=== PATIENT | male | born 1955 | race Two or more races ===

== ENCOUNTER 2017-08-26 16:31 | Emergency (ER) | payer OTHER ==
[~2017-08-26] VITALS: Ht 185.4 cm; Wt 77.1 kg
[~2017-08-26 16:31] MED LIST: AQUASOL E15 IU/0.3 PO; CATAFLAM50 MG PO; COZAAR50 MG; COZAAR50 MG PO; DOLOGESIC 500-1 EACH PO; ELOCON45 G1 TP; FLEXERIL10 MG PO; FLUCONAZOLE100 MG PO; GILTUSS TR TAB1 EACH PO; IMODIUM A-D2 MG PO; PEPCID40 MG PO; ZOFRAN4 MG PO; ZYNCOF 20-400120 ML PO; ZYRTEC10 MG PO
== END 2017-08-26 17:44 | disposition home or self-care (01) ==
LOC: ER 16:31
DX: S61.236A Puncture wound without foreign body of right little finger without damage to nail, initial encounter (principal); W46.0XXA Contact with hypodermic needle, initial encounter; Y93.89 Activity, other specified; Y92.69 Other specified industrial and construction area as the place of occurrence of the external cause; Y99.8 Other external cause status

== ENCOUNTER 2017-10-11 15:20 | Outpatient (CLI) | payer OTHER | END 2017-10-11 15:24 | disposition home or self-care (01) | LOC: RAD 15:20 | DX: M25.552 Pain in left hip (principal) ==

== ENCOUNTER → 2018-02-18 | Emergency (ER) | payer OTHER ==
[~2018-02-18] VITALS: Ht 182.9 cm; Wt 77.1 kg
== END | disposition home or self-care (01) ==
LOC: ER 12:00
DX: H57.89 Other specified disorders of eye and adnexa (principal)

== ENCOUNTER 2018-03-22 15:07 | Outpatient (CLI) | payer OTHER | END 2018-03-22 15:20 | disposition home or self-care (01) | LOC: LAB 15:07 | DX: Z11.3 Encounter for screening for infections with a predominantly sexual mode of transmission (principal) ==

== ENCOUNTER 2018-05-25 06:56 | Outpatient (CLI) | payer OTHER | END 2018-05-25 07:00 | disposition home or self-care (01) | LOC: LAB 06:56 | DX: E78.49 Other hyperlipidemia (principal); Z00.00 Encounter for general adult medical examination without abnormal findings; R42 Dizziness and giddiness ==

== ENCOUNTER 2018-07-21 14:30 | Emergency (ER) | payer OTHER ==
[~2018-07-21] VITALS: Ht 188 cm; Wt 77.1 kg
[2018-07-21] MEDS ORDERED: ATACAND16 MG (14:50)
== END 2018-07-21 19:17 | disposition home or self-care (01) ==
LOC: ER 14:30
DX: R10.84 Generalized abdominal pain (principal)

== ENCOUNTER 2019-01-11 21:28 | Emergency (ER) | payer OTHER ==
[~2019-01-11] VITALS: Ht 185.4 cm; Wt 81.6 kg
[~2019-01-11 21:28] MED LIST changes: +ATACAND16 MG
== END 2019-01-11 22:38 | disposition home or self-care (01) ==
LOC: ER 21:28
DX: M54.5 Low back pain (principal)

== ENCOUNTER 2019-01-12 15:01 | Outpatient (CLI) | payer OTHER | END 2019-01-12 15:10 | disposition home or self-care (01) | LOC: LAB 15:01 | DX: M54.5 Low back pain (principal); I10 Essential (primary) hypertension; Z00.00 Encounter for general adult medical examination without abnormal findings; Z12.11 Encounter for screening for malignant neoplasm of colon; Z13.6 Encounter for screening for cardiovascular disorders; Z12.5 Encounter for screening for malignant neoplasm of prostate; M54.6 Pain in thoracic spine ==

== ENCOUNTER 2019-01-14 15:14 | Outpatient (CLI) | payer OTHER | END 2019-01-14 17:26 | disposition home or self-care (01) | LOC: LAB 15:14 | DX: M54.5 Low back pain (principal); M54.6 Pain in thoracic spine; Z12.11 Encounter for screening for malignant neoplasm of colon; Z00.00 Encounter for general adult medical examination without abnormal findings; I10 Essential (primary) hypertension; Z13.6 Encounter for screening for cardiovascular disorders; Z12.5 Encounter for screening for malignant neoplasm of prostate ==

== ENCOUNTER 2019-04-21 17:00 | Outpatient (CLI) | payer OTHER | END 2019-04-21 17:23 | disposition home or self-care (01) | LOC: LAB 17:00 | DX: R05 Cough (principal); J11.1 Influenza due to unidentified influenza virus with other respiratory manifestations ==

== ENCOUNTER 2019-09-28 18:41 | Emergency (ER) | payer OTHER ==
[~2019-09-28] VITALS: Ht 188 cm; Wt 77.1 kg
[2019-09-28] MEDS ORDERED: COZAAR50 MG PO (18:56)
== END 2019-09-28 21:51 | disposition home or self-care (01) ==
LOC: ER 18:41
DX: S61.021A Laceration with foreign body of right thumb without damage to nail, initial encounter (principal); W45.8XXA Other foreign body or object entering through skin, initial encounter; Y93.89 Activity, other specified; Y92.89 Other specified places as the place of occurrence of the external cause; Y99.8 Other external cause status

== ENCOUNTER 2019-11-16 10:00 | Outpatient (CLI) | payer OTHER | END 2019-11-16 15:46 | disposition home or self-care (01) | LOC: PPH VACUNA 10:00 | DX: Z23 Encounter for immunization (principal) ==

== ENCOUNTER 2020-02-06 14:06 | Outpatient (CLI) | payer OTHER | END 2020-02-06 15:00 | disposition home or self-care (01) | LOC: PPH VACUNA 14:06 | DX: Z23 Encounter for immunization (principal) ==

== ENCOUNTER 2020-02-27 13:10 | Emergency (ER) | payer OTHER ==
[~2020-02-27] VITALS: Ht 185.4 cm; Wt 77.1 kg
== END 2020-02-27 14:43 | disposition home or self-care (01) ==
LOC: ER 13:10
DX: H92.01 Otalgia, right ear (principal); H53.142 Visual discomfort, left eye

== ENCOUNTER 2020-05-01 08:32 | Emergency (ER) | payer OTHER ==
[~2020-05-01] VITALS: Ht 182.9 cm; Wt 81.6 kg
== END 2020-05-01 10:02 | disposition home or self-care (01) ==
LOC: ER 08:32
DX: M25.521 Pain in right elbow (principal)

== ENCOUNTER 2020-11-28 16:10 | Outpatient (CLI) | payer OTHER | END 2020-11-28 16:15 | disposition home or self-care (01) | LOC: PPH VACUNA 16:10 | PROVIDERS: ATTEND Emergency Medicine Pediatric Emergency Medicine | DX: Z23 Encounter for immunization (principal) ==

== ENCOUNTER 2020-12-26 13:05 | Outpatient (CLI) | payer OTHER | END 2020-12-26 13:30 | disposition home or self-care (01) | LOC: PPH VACUNA 13:05 | PROVIDERS: ATTEND Emergency Medicine Pediatric Emergency Medicine | DX: Z23 Encounter for immunization (principal) ==

== ENCOUNTER 2021-06-19 10:29 | Emergency (ER) | payer OTHER ==
[~2021-06-19] VITALS: Ht 185.4 cm; Wt 81.6 kg
== END 2021-06-19 13:35 | disposition home or self-care (01) ==
LOC: ER 10:29
DX: B34.9 Viral infection, unspecified (principal); I10 Essential (primary) hypertension; Z20.822 Contact with and (suspected) exposure to COVID-19

== ENCOUNTER 2021-06-23 10:26 | Outpatient (CLI) | payer OTHER | END 2021-06-23 10:35 | disposition home or self-care (01) | LOC: LAB 10:26 | PROVIDERS: ATTEND General Practice | DX: Z20.822 Contact with and (suspected) exposure to COVID-19 (principal); R05.9 Cough, unspecified; R50.9 Fever, unspecified ==

== ENCOUNTER 2021-07-31 15:01 | Outpatient (CLI) | payer OTHER | END 2021-07-31 15:11 | disposition home or self-care (01) | LOC: PPH VACUNA 15:01 | PROVIDERS: ATTEND Emergency Medicine Pediatric Emergency Medicine | DX: Z23 Encounter for immunization (principal) ==

== ENCOUNTER 2021-12-16 15:30 | Outpatient (CLI) | payer OTHER | END 2021-12-16 15:35 | disposition home or self-care (01) | LOC: PPH VACUNA 15:30 | PROVIDERS: ATTEND Emergency Medicine Pediatric Emergency Medicine | DX: Z23 Encounter for immunization (principal) ==

== ENCOUNTER 2022-04-19 18:28 | Emergency (ER) | payer OTHER ==
[~2022-04-19] VITALS: Ht 188 cm; Wt 77.1 kg
== END 2022-04-19 21:14 | disposition home or self-care (01) ==
LOC: ER 18:28
DX: J06.9 Acute upper respiratory infection, unspecified (principal); Z20.822 Contact with and (suspected) exposure to COVID-19

== ENCOUNTER → 2022-05-13 06:06 | Outpatient (CLI) | payer OTHER | END | disposition home or self-care (01) | LOC: LAB 06:06 | PROVIDERS: ATTEND General Practice | DX: Z00.00 Encounter for general adult medical examination without abnormal findings (principal); E78.5 Hyperlipidemia, unspecified; E55.9 Vitamin D deficiency, unspecified; I10 Essential (primary) hypertension; R10.9 Unspecified abdominal pain; N39.0 Urinary tract infection, site not specified; Z12.5 Encounter for screening for malignant neoplasm of prostate; R42 Dizziness and giddiness ==

== ENCOUNTER 2022-07-07 16:27 | Emergency (ER) | payer OTHER ==
[~2022-07-07] VITALS: Ht 182.9 cm; Wt 81.6 kg
== END 2022-07-07 20:41 | disposition home or self-care (01) ==
LOC: ER 16:27
DX: M72.2 Plantar fascial fibromatosis (principal)

== ENCOUNTER 2023-03-10 13:01 | Emergency (ER) | payer OTHER ==
[~2023-03-10] VITALS: Ht 177.8 cm; Wt 71.7 kg
[2023-03-10 14:41] LABS: HEMATOCRIT 38.8 % (39.0-48.0); MEAN CORPUSCULAR HEMOGLOBIN 27.7 pg (27.00-32.0); MEAN CORPUSCULAR HGB CONC 33.4 g/dl (32.0-36.0); PLATELET COUNT 288 K/uL (150-450); RED BLOOD COUNT 4.67 M/uL (4.00-6.00); RED CELL DISTRIBUTION WIDTH 13.1 % (11.5-14.5)
[2023-03-10] MEDS ORDERED: ZITHROMAX500 MG PO (15:24)
[2023-03-10] MEDS ORDERED: TUSNEL LIQUID178 ML PO (15:24)
== END 2023-03-10 16:03 | disposition home or self-care (01) ==
LOC: ER 13:02
PROVIDERS: General Practice
DX: J06.9 Acute upper respiratory infection, unspecified (principal); Z20.822 Contact with and (suspected) exposure to COVID-19

== ENCOUNTER 2023-08-19 13:04 | Outpatient (CLI) | payer OTHER ==
[~2023-08-19 13:04] MED LIST changes: +TUSNEL LIQUID178 ML PO; +ZITHROMAX500 MG PO
[2023-08-19 13:49] LABS: HEMATOCRIT 41.1 % (39.0-48.0); HEMOGLOBIN 13.7 g/dL (13-16.00); MEAN CELL VOLUME 82.7 fL (80.0-100.00); MEAN CORPUSCULAR HEMOGLOBIN 27.6 pg (27.00-32.0); MEAN CORPUSCULAR HGB CONC 33.3 g/dl (32.0-36.0); PLATELET COUNT 259 K/uL (150-450); RED BLOOD COUNT 4.97 M/uL (4.00-6.00); RED CELL DISTRIBUTION WIDTH 13.3 % (11.5-14.5)
[2023-08-19 13:51] LABS: PH,URINE 5.5 (5.0-8.0); URINE APPEARANCE Clear; URINE BILIRRUBIN Negative (NEGATIVE); URINE BLOOD Negative; URINE COLOR Yellow; URINE GLUCOSE Negative (NEGATIVE); URINE LEUKOCYTE Negative; URINE NITRATE Negative; URINE PROTEIN 30 (NEGATIVE)
[2023-08-19 13:54] LABS: URINE BACTERIA 8.8 uL (0.0-1933); URINE EPITHELIAL CELLS 3.2 uL (0.0-38.8); URINE WBC 2.6 uL (0.0-23.2)
[2023-08-19 13:56] LABS: URINE RBC 1.3 uL (0.0-20.8)
[2023-08-19 14:47] LABS: T3 TOTAL 1.27 ng/ml (0.846-2.02); VITAMIN D3 25 HYDROXY 37.08 ng/ml (30-120)
[2023-08-19 14:49] LABS: ALBUMIN 4.1 gm/dL (3.4-5.0); BILIRUBIN TOTAL 0.69 mg/dL (0.3-1.2); BILIRUBIN,CONJUGATED 0.21 mg/dL (0.0-0.2); BILIRUBIN,UNCONJUGATED 0.48 mg/dL (0.0-0.6); CALCIUM 9.6 mg/dL (8.5-10.1); CHOL HDL RATIO 2.5 (0-5.0); GFR 74.09; GLOBULINA 2.8 G/DL (2.4-3.5); POTASSIUM 4.57 mEq/L (3.5-5.1); PROSTATIC SPECIFIC ANTIGEN 0.541 NG/ML (0.010-4.00); T4 TOTAL 10.52 UG/DL (4.5-12.1); TOTAL PROTEIN 6.9 gm/dL (6.4-8.2); TSH 1.17 uIU/mL (0.358-3.74)
== END 2023-08-19 13:09 | disposition home or self-care (01) ==
LOC: LAB 13:04
PROVIDERS: ATTEND General Practice
DX: E78.5 Hyperlipidemia, unspecified (principal); E55.9 Vitamin D deficiency, unspecified; N39.0 Urinary tract infection, site not specified; R42 Dizziness and giddiness; Z00.00 Encounter for general adult medical examination without abnormal findings

== ENCOUNTER 2023-11-17 14:55 | Outpatient (CLI) | payer OTHER | END 2023-11-17 14:56 | disposition home or self-care (01) | LOC: LAB 14:55 | PROVIDERS: ATTEND Preventive Medicine Occupational Medicine | DX: B19.10 Unspecified viral hepatitis B without hepatic coma (principal) ==

== ENCOUNTER 2024-01-04 15:30 | Outpatient (CLI) | payer OTHER | END 2024-01-04 15:40 | disposition home or self-care (01) | LOC: PPH VACUNA 15:30 | PROVIDERS: ATTEND Emergency Medicine Pediatric Emergency Medicine | DX: Z23 Encounter for immunization (principal) ==

== ENCOUNTER 2024-05-11 10:39 | Emergency (ER) | payer OTHER ==
[~2024-05-11] VITALS: Ht 185.4 cm; Wt 77.1 kg
[2024-05-11 10:44] VITALS: BP 136/76; O2SAT 96
== END 2024-05-11 11:14 | disposition home or self-care (01) ==
LOC: ER 10:42
DX: L84 Corns and callosities (principal)

== ENCOUNTER 2025-01-11 15:00 | Outpatient (CLI) | payer OTHER ==
[2025-01-11 15:41] LABS: URINE APPEARANCE Clear; URINE BILIRRUBIN Negative (NEGATIVE); URINE BLOOD Negative; URINE COLOR Yellow; URINE GLUCOSE Negative (NEGATIVE); URINE KETONE Negative (NEGATIVE); URINE LEUKOCYTE Negative; URINE NITRATE Negative; URINE PROTEIN 30 (NEGATIVE); URINE UROBILINOGEN 1.0 E.U./dl
[2025-01-11 15:41] LABS: BASO % 0.8 % (0.1-1.2); EOS # 0.14 (0.04-0.54); EOS % 2.9 % (0.7-7.0); LYMPH # 1.36 (1.18-3.74); LYMPH % 28.0 % (19.3-53.1); MEAN PLATELET VOLUME 9.70 fl (9.4-12.4); MONO # 0.34 (0.24-0.82); MONO % 7.0 % (4.7-12.5); NEUT # 2.96 (1.56-6.13); NEUT % 61.1 % (34.0-71.1); RED CELL DISTRIBUTION WIDTH 12.3 % (11.6-14.4)
[2025-01-11 15:45] LABS: URINE BACTERIA 5.9 uL (0.0-1933); URINE EPITHELIAL CELLS 3.6 uL (0.0-38.8); URINE WBC 2.1 uL (0.0-23.2)
[2025-01-11 15:49] LABS: URINE CAST 0.00 uL (0.0-1.40); URINE RBC 1.0 uL (0.0-20.8)
[2025-01-11 16:30] LABS: ALT/SGPT 20.0 U/L (12-78); AST/SGOT 8.0 U/L (15-37); BILIRUBIN TOTAL 0.8 mg/dL (0.3-1.2); BILIRUBIN,CONJUGATED 0.2 mg/dL (0.0-0.2); BUN CREA RATIO 7.0 (7.0-25.0); CHOL HDL RATIO 2.4 (0-5.0); CREATININE SERUM 1.11 mg/dL (0.70-1.30); GFR 65.49; GLOBULINA 2.6 G/DL (2.4-3.5); GLUCOSE FASTING 103.0 mg/dL (65-100); HDL 73.0 mg/dl (40-60); LDL 95.0 mg/dl (0-130); OSMOLALITY SERUM 282.0 MOSM/KG (275-295); PROSTATIC SPECIFIC ANTIGEN 0.488 NG/ML (0.010-4.00); T3 UPTAKE 32.0 % (33-40); T4 TOTAL 9.07 UG/DL (4.5-12.1); TSH 1.36 uIU/mL (0.358-3.74); VLDL 9.0 (0-39)
[2025-01-12 12:14] LABS: T3 TOTAL 1.32 ng/ml (0.846-2.02); VITAMIN D3 25 HYDROXY 36.88 ng/ml (30-120)
== END 2025-01-11 15:11 | disposition home or self-care (01) ==
LOC: LAB 15:00
PROVIDERS: ATTEND General Practice
DX: E78.5 Hyperlipidemia, unspecified (principal); E55.9 Vitamin D deficiency, unspecified; I10 Essential (primary) hypertension; Z12.5 Encounter for screening for malignant neoplasm of prostate; R42 Dizziness and giddiness; R10.9 Unspecified abdominal pain; Z00.00 Encounter for general adult medical examination without abnormal findings